=== PATIENT | male | born 1995 | race Caucasian/White ===

== ENCOUNTER → 2017-02-21 | Outpatient (CLI) | payer OTHER ==
[~2017-02-21] MED LIST: ACET-24 PO; AMPH20CA3 PO; AMPH25CA PO; AMPH30CA3 PO; AMPH30TA2 PO; ASPEC325 PO; CLON0.2T PO; RXC5 PO; VENL150T33 PO; VENL225T27 PO; VENL75CA73 PO
== END | disposition home or self-care (01) ==
LOC: C.LAB 01:36
DX: Z02.83 Encounter for blood-alcohol and blood-drug test (principal)

== ENCOUNTER 2017-03-13 00:11 | Inpatient (IN) | payer BC, OTHER ==
[~2017-03-13] VITALS: Ht 177.8 cm; Wt 70.2 kg
[2017-03-13] VITALS (9 sets, daily range): BP systolic 109–149; BP diastolic 53–86; PULSE 75–95; TEMP 36.4–37.1; O2SAT 95–100; Ht 177.8 cm; Wt 70.2 kg
[2017-03-13] MEDS ORDERED: MoRPHine SULFATE 4 MG/ML 1 ML CARP\\VIAL IV STA ×2 (00:33→03:01)
[2017-03-13] MEDS ORDERED: ONDANSETRON INJ 2 MG/ML 2 ML VIAL IV STA (00:33)
[2017-03-13] MEDS ORDERED: SODIUM CHLORIDE 0.9% 1000ML 1,000 ML IV STA ×4 (01:12→04:14)
[2017-03-13] MEDS ORDERED: OPTIRAY 320 IV PRN (01:30)
[2017-03-13 01:42] LABS: HEMATOCRIT 40.5 % (42-52); MEAN CELL VOLUME 83.3 fL (80-100); MEAN CORPUSCULAR HEMOGLOBIN 30.7 pg (25-34); MEAN CORPUSCULAR HGB CONC 36.8 g/dl (32-36); MEAN PLATELET VOLUME 9.3 fL (7.4-10.4); PLATELET COUNT 298 K/uL (130-400); RED BLOOD COUNT 4.86 M/uL (4.7-6.1); WHITE BLOOD COUNT 15.31 K/uL (4.8-10.8)
[2017-03-13] MEDS ORDERED: AMPH25CA PO (01:51)
[2017-03-13] MEDS ORDERED: VENL225T27 PO (01:52)
[2017-03-13] MEDS ORDERED: CLON0.2T PO (01:53)
[2017-03-13] MEDS ORDERED: AMPH20CA3 PO (02:01)
[2017-03-13 02:02] LABS: BUN/CREATININE RATIO 15.2 (10-20); CALCIUM 8.9 mg/dl (8.5-10.1); POTASSIUM 3.5 mmol/L (3.5-5.1)
[2017-03-13] MEDS ORDERED: AMPH30TA2 PO (02:02)
[2017-03-13] MEDS ORDERED: AMPH30CA3 PO (02:04)
[2017-03-13] MEDS ORDERED: VENL150T33 PO (02:06)
[2017-03-13] MEDS ORDERED: VENL75CA73 PO (02:07)
[2017-03-13 02:16] LABS: BASO % 0.2 %; BASO ABS # 0.03 K/uL (0-0.2); COMPLETE YES; EOS % 0.1 %; IG% 0.3 %; LYMPH % 10.6 %; LYMPH ABS # 1.63 K/uL (1.2-3.4); MONO % 6.8 %
[2017-03-13] MEDS ORDERED: HYDROmorphone INJ 1 MG/ML SYR IV STA (03:50)
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
[2017-03-13] MEDS ORDERED: NURSING VERBAL MED ORDER ONE ×2 (06:00→10:00)
[2017-03-13] MEDS ORDERED: ONDANSETRON INJ 2 MG/ML 2 ML VIAL IV PRN ×3 (06:15→14:00)
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
[2017-03-13] MEDS: HYDROmorphone INJ 0.5 MG/0.5 ML SYR IV PRN ×2 (06:58→09:47)
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
[2017-03-13] MEDS: SODIUM CHLORIDE 0.9% 1000ML 1,000 ML IV SCH ×3 (08:25→22:05)
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
[2017-03-13 08:49] LABS: URINE APPEARANCE CLEAR (CLEAR); URINE BILIRUBIN NEG (NEG); URINE COLOR YELLOW; URINE NITRITE NEG (NEG); URINE PH 5.5 (4.5-7.5); URINE SPECIFIC GRAVITY > 1.045 (1.000-1.030); UROBILINOGEN NEG (NEG); ZZURINE CULT IF INDIC CATH NO
[2017-03-13 08:53] LABS: MANUAL MICROSCOPIC REQUIRED? NO; REVIEW REQ? NO
[2017-03-13] MEDS: VENLAFAXINE HCL XR 75 MG CAPXR PO SCH (09:00)
[2017-03-13] MEDS ORDERED: HYDROmorphone INJ 1 MG/ML SYR IV PRN ×2 (10:15→12:00)
[2017-03-13] MEDS ORDERED: MIDAZOLAM HCL 1 MG/ML 2ML VIAL ONE (10:39)
--- NOTE | 2017-03-13 10:41 | History & Physical Bridge Note ---
H&P Re-Evaluation Bridge Note: I have examined the patient, reviewed the History & Physical and in the interval since the performance of the History & Physical I have noted the following changes of clinical significance: No changes noted
[2017-03-13] MEDS ORDERED: FENTANYL CITRATE INJ 50 MCG/1 ML 2 ML VIAL IV PRN (12:00)
[2017-03-13] MEDS ORDERED: FENTANYL CITRATE INJ 50 MCG/1 ML 2 ML VIAL ONE (12:00)
[2017-03-13] MEDS ORDERED: EpHEDrine SULFATE INJ 50 MG/ML AMP IV PRN (12:00)
[2017-03-13] MEDS ORDERED: ATROPINE SULFATE 0.1 MG/ML 5ML SYR IV PRN (12:00)
[2017-03-13] MEDS ORDERED: BUPIVACAINE/EPINEPHRINE 0.5% MPF 1:200,000 30 ML VIAL ONE (12:07)
[2017-03-13] MEDS ORDERED: HYDROmorphone INJ 2 MG/ML SYR/VIAL ONE (12:36)
[2017-03-13] MEDS ORDERED: DEXAMETHASONE SOD INJ 4 MG/ML VIAL ONE (12:41)
[2017-03-13] MEDS ORDERED: ONDANSETRON INJ 2 MG/ML 2 ML VIAL ONE (12:41)
[2017-03-13] MEDS ORDERED: PROPOFOL IV EMULSION 10 MG/ML 20 ML VIAL IV ONE (12:41)
[2017-03-13] MEDS ORDERED: BACITRACIN 50000 UNIT VIAL ONE (13:15)
[2017-03-13] MEDS ORDERED: DiphenhydrAMINE HCL 50 MG/ML VIAL IV PRN (14:00)
[2017-03-13] MEDS ORDERED: ALUMINUM/MAGNESIUM/SIMETH (MAALOX MAX) 30 ML UDC PO PRN (14:00)
--- NOTE | 2017-03-13 14:27 | Anesthesiology Progress Note ---
Anesthesia Post Op Note Date & Time Mar 13, 2017 at 14:26 Vital Signs Pain Intensity: 3.0 Vital Signs Past 12 Hours Date Time Temp Pulse Resp B/P (MAP) Pulse Ox O2 Delivery O2 Flow Rate FiO2 03/13/17 14:15 84 16 132/84 100 Nasal Cannula 3 03/13/17 14:05 85 16 142/79 100 Oxymask 10 03/13/17 13:55 36.9 84 16 129/78 100 Oxymask 10 03/13/17 08:00 Room Air 03/13/17 07:16 37.0 91 18 145/79 (101) 95 Room Air 03/13/17 06:43 37.1 94 16 145/82 96 Room Air 03/13/17 06:25 85 18 142/79 97 03/13/17 06:20 85 18 142/79 97 Room Air 03/13/17 04:28 86 16 96 Room Air 03/13/17 02:46 104 18 138/78 97 Room Air Notes Mental Status: alert / awake / arousable, participated in evaluation Pt Amnestic to Procedure: Yes Nausea / Vomiting: adequately controlled Pain: adequately controlled Airway Patency, RR, SpO2: stable & adequate BP & HR: stable & adequate Hydration State: stable & adequate Anesthetic Complications: no major complications apparent
--- NOTE | 2017-03-13 14:50 | DIAGNOSTIC IMAGING REPORT ---
LEFT TIBIA/FIBULA 2 VIEWS ROUTINE CLINICAL HISTORY: LT IM TIBIAL NAIL COMPARISON STUDY: Left tibia and fibula radiographs March 13, 2017. Fluoroscopy time: 200 seconds. FINDINGS: 7 fluoroscopic images demonstrate placement of an intramedullary michael within the left tibia with proximal and distal screws. Hardware fixates the mid shaft fracture of the left tibia. Fracture alignment has markedly improved and is now near anatomic. Hardware is intact. Alignment of the mid shaft fibular fracture has improved. Multiple osteochondromas are incidentally noted. IMPRESSION: Expected findings following internal fixation of the left tibial fracture. Electronically signed by: Marco Felder M.D. 03/13/2017 2:49 PM Dictated Date/Time: 03/13/2017 2:47 PM
[2017-03-13] MEDS: ACETAMINOPHEN 500 MG TAB PO SCH ×2 (15:30→22:05)
[2017-03-13] MEDS: KETOROLAC TROMETHAMINE 30 MG/ML VIAL IV. SCH ×2 (15:31→22:04)
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
[2017-03-13] MEDS: OXYCODONE HCL IR 5 MG TAB (IMMEDIATE RELEASE) PO PRN ×2 (19:13→20:52)
[2017-03-13] MEDS: CEFAZOLIN IV 1,000 MG in DEXTROSE 5% 50ML 50 ML IV SCH (19:34)
[2017-03-13] MEDS ORDERED: CLONIDINE HCL 0.1 MG TAB PO SCH (21:00)
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
[2017-03-14 03:43] VITALS: BP_SYST 114; BP_SYST 129; BP_DIAS 69; BP_DIAS 78; PULSE 68; TEMP 36.8; O2SAT 97
[2017-03-14] MEDS: KETOROLAC TROMETHAMINE 30 MG/ML VIAL IV. SCH ×2 (03:56→10:53)
[2017-03-14] MEDS: CEFAZOLIN IV 1,000 MG in DEXTROSE 5% 50ML 50 ML IV SCH (03:56)
[2017-03-14] MEDS: ACETAMINOPHEN 500 MG TAB PO SCH ×2 (05:44→14:34)
[2017-03-14] MEDS: SODIUM CHLORIDE 0.9% 1000ML 1,000 ML IV SCH (05:45)
[2017-03-14 07:30] VITALS: BP 103/70; PULSE 83; TEMP 36.5; O2SAT 95
[2017-03-14] MEDS: VENLAFAXINE HCL XR 75 MG CAPXR PO SCH (08:49)
[2017-03-14] MEDS ORDERED: ASPIRIN 325 MG ECTAB PO SCH (09:00)
[2017-03-14] MEDS ORDERED: MULTIVITAMIN TAB PO SCH (09:00)
[2017-03-14] MEDS ORDERED: PANTOprazole SOD 40 MG TAB PO SCH (09:00)
[2017-03-14 12:06] LABS: BASO % 0.1 %; BASO ABS # 0.01 K/uL (0-0.2); COMPLETE YES; HEMATOCRIT 35.1 % (42-52); IG% 0.2 %; LYMPH % 24.7 %; LYMPH ABS # 2.31 K/uL (1.2-3.4); MEAN CELL VOLUME 84.8 fL (80-100); MEAN CORPUSCULAR HEMOGLOBIN 29.5 pg (25-34); MEAN CORPUSCULAR HGB CONC 34.8 g/dl (32-36); MEAN PLATELET VOLUME 9.2 fL (7.4-10.4); MONO % 9.2 %; NEUT % 64.8 %; PLATELET COUNT 242 K/uL (130-400); RED BLOOD COUNT 4.14 M/uL (4.7-6.1); WHITE BLOOD COUNT 9.35 K/uL (4.8-10.8)
[2017-03-14] MEDS ORDERED: RXC5 PO (12:19)
[2017-03-14] MEDS ORDERED: ACET-24 PO (12:19)
[2017-03-14] MEDS ORDERED: ASPEC325 PO (12:19)
--- NOTE | 2017-03-14 12:26 | Discharge Instructions ---
Discharge Instructions Date of Service Mar 14, 2017. Admission Reason for Admission: Tib/Fib Fx Discharge Discharge Diagnosis / Problem: Left Tibia/Fibula Fx Discharge Goals Goal(s): Decrease discomfort, Improve function Activity Recommendations Activity Limitations: per Instructions/Follow-up section Weightbearing Status: Left toe touch . Instructions / Follow-Up Instructions / Follow-Up Toe Touch Weight Bearing on the Left Lower Leg. Keep dressings/splint clean and dry. You may shower if you keep a waterproof barrier covering the splint. Elevate the leg on 1 or 2 pillows when at rest. Increase your activity as able. 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 Crutches for ambulation. Current Hospital Diet Patient's current hospital diet: Regular Diet Discharge Diet Recommended Diet: Regular Diet Procedures Procedures Performed: Open Reduction Internal Fixation Left Tibia Fracture and closed treatment fibula fracture Pending Studies Studies pending at discharge: no Medical Emergencies . Who to Call and When: Medical Emergencies: If at any time you feel your situation is an emergency, please call 911 immediately. . Non-Emergent Contact Non-Emergency issues call your: Surgeon Call Non-Emergent contact if: temperature is above 101.5, your pain is not controlled, your pain is worsening, wound has increased drainage, wound has increased redness . "Provider Documentation" section prepared by Duarte Mulligan. . VTE Core Measure Inpt VTE Proph given/why not?: Other Anticoagulation, T.E.D. Stockings, SCD's [place] Drug Monitoring Program Search Results: patient reviewed within database, no issues identified
--- NOTE | 2017-03-14 12:39 | Orthopedic Progress Note ---
Orthopedic Progress Note Date of Service Mar 14, 2017. Subjective Post OP Day: 1 Reports: feeling well, Denies: complaints Objective calves soft nontender, N/V intact, splint C/D/I, capillary refill less than 2 sec., toes mobile, CMS intact Date Time Temp Pulse Resp B/P (MAP) Pulse Ox O2 Delivery O2 Flow Rate FiO2 03/14/17 07:30 36.5 83 19 103/70 (81) 95 Room Air 03/14/17 07:30 Room Air 03/14/17 03:43 36.8 68 18 114/78 (90) 97 Room Air 03/14/17 00:00 Room Air 03/13/17 22:58 36.8 76 16 111/59 (76) 96 Room Air 03/13/17 20:11 36.7 83 20 124/65 (84) 96 Room Air 03/13/17 17:45 36.7 83 16 109/53 (71) 99 Nasal Cannula 4.0 03/13/17 16:45 36.7 87 20 112/68 (83) 98 Nasal Cannula 4.0 03/13/17 15:45 36.5 79 16 138/76 (96) 100 Nasal Cannula 4.0 03/13/17 15:30 Nasal Cannula 3.0 03/13/17 15:15 36.4 75 18 142/79 (100) 100 Nasal Cannula 4.0 03/13/17 14:55 37.0 95 16 149/86 (107) 100 Nasal Cannula 3.0 03/13/17 14:53 Nasal Cannula 3.0 03/13/17 14:25 36.5 84 16 144/83 100 Nasal Cannula 3 03/13/17 14:15 84 16 132/84 100 Nasal Cannula 3 03/13/17 14:05 85 16 142/79 100 Oxymask 10 03/13/17 13:55 36.9 84 16 129/78 100 Oxymask 10 Laboratory Results 24 Hours: Test 03/14/17 11:47 White Blood Count 9.35 K/uL Red Blood Count 4.14 M/uL Hemoglobin 12.2 g/dL Hematocrit 35.1 % Mean Corpuscular Volume 84.8 fL Mean Corpuscular Hemoglobin 29.5 pg Mean Corpuscular Hemoglobin Concent 34.8 g/dl Platelet Count 242 K/uL Mean Platelet Volume 9.2 fL Neutrophils (%) (Auto) 64.8 % Lymphocytes (%) (Auto) 24.7 % Monocytes (%) (Auto) 9.2 % Eosinophils (%) (Auto) 1.0 % Basophils (%) (Auto) 0.1 % Neutrophils # (Auto) 6.06 K/uL Lymphocytes # (Auto) 2.31 K/uL Monocytes # (Auto) 0.86 K/uL Eosinophils # (Auto) 0.09 K/uL Basophils # (Auto) 0.01 K/uL Assessment & Plan Assessment: POD ORIF tibia with IMN Plan: Doing well pain controlled jax po mobilized ASA for DVT proph D/C today f/u 2 weeks
[2017-03-14 12:40] LABS: BUN/CREATININE RATIO 18.9 (10-20); CALCIUM 7.9 mg/dl (8.5-10.1); CREATININE 0.88 mg/dl (0.60-1.40); POTASSIUM 3.5 mmol/L (3.5-5.1)
[2017-03-14 13:46] VITALS: BP 103/70; PULSE 83; TEMP 36.5; O2SAT 95
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
== END 2017-03-14 15:10 | disposition home or self-care (01) | DRG 494 ==
LOC: EDBD 00:11 → C.EDB 00:12 → C.MSW 05:56 → ENRESERV 06:04
PROVIDERS: ADMIT Orthopaedic Surgery Sports Medicine; ATTEND Orthopaedic Surgery Sports Medicine
PROC: 0QSH06Z Reposition Left Tibia with Intramedullary Internal Fixation Device, Open Approach (ICD-10-PCS; principal; 2017-03-13 12:15)
DX: S82.402A Unspecified fracture of shaft of left fibula, initial encounter for closed fracture (principal); S82.202A Unspecified fracture of shaft of left tibia, initial encounter for closed fracture; F90.9 Attention-deficit hyperactivity disorder, unspecified type; F41.9 Anxiety disorder, unspecified; Z83.3 Family history of diabetes mellitus; Z82.49 Family history of ischemic heart disease and other diseases of the circulatory system; V20.4XXA Motorcycle driver injured in collision with pedestrian or animal in traffic accident, initial encounter

== ENCOUNTER 2019-12-04 23:23 | Inpatient (IN) ==
[2019-12-04] MEDS ORDERED: LORazepam 1 MG TAB PO STA (23:44)
--- NOTE | 2019-12-04 23:50 | Emergency Department Note ---
Impression & Plan Depression with suicidal ideation, Alcohol intoxication ED Provider Note Name: ALAN GARCIA Age: 24 Sex: M Arrives Via: Police [employer] Informant: Patient, Police ED Provider: Michael Sena MD Chief Complaint: Suicidal Ideation Impression: Depression with Suicidal Ideation Alcohol Intoxication Medical Decision Makin yr old male with long history depression/anxiety and ADHD who also clearly has somewhat of an alcohol problem, admitting daily ETOH intake and regularly intoxicated. No history seizures/hallucinations though does have shakes if he g oes a few days without drinking. He arrives intoxicated with police after making suicidal statements to his father and police. 302 filed by Police. He admits suicidal ideation for some time now and self medicating with alcohol for depression which he further states only makes this worse. He is quite anxious and received PO ativan prior to calming down and going to bed. Medically clear. Meds likely cause of positive drug screen. Medically clear other than alcohol intoxication. Monitored overnight while awaiting sobering up. Signed out to Dr Santana pending psychiatric evaluation and management. No evidence of withdrawal while in ed over the night. Prior Medical Record and Triage/Nursing Notes reviewed by Me Differentials:Mood disorder, infection, hypoglycemia, electrolyte abnormalities, cardiac sources, intracerebral event, toxicologic, trauma, neurologic, as well as other pathologies. Vital Signs: reviewed and remarkable for mild tachy Interventions: Ativan 1mg and 2mg PO Labs:Reviewed and remarkable for +etoh Consults:none Plan: Disposition:Signed out to Dr Santana pending mental health evaluation Condition: Good Blood pressure:Elevated - Referred to PCP - [place] to be Situational. Prescriptions:None PDMP: n/a History of Present Illness:24 / M arrives for evaluation of suicidal ideation. Patient admits history of ADHD and anxiety who has followed with psychiatry for many years with depression. He admits daily ETOH use and regularly getting intoxicated with tremors if no etoh for a few days but never seizure nor petit llucinations. He has been feeling increasingly depressed over last few weeks/months. Associated with thoughts of harm to himself with some specific plans. He admits tonight he was seriously thinking about killing himself and thus got drunk to deal with this. He told his father who called 911 and patient brought to ED by Police. He is here on 302 warrant given the specific nature of suicidal ideation he expressed to police. He denies any attempt to harm self. He is on several psychiatric medications daily and denies any over use of medications. He has taken no other medications today. Notes symptoms get worse when thinking about future and better when he gets intoxicated. He has never attempted to harm self before and denies previous hospitalization for psychiatric illness ROS: See above HPI for pertinent positives & negatives. A total of 10 systems re viewed and were otherwise negative. 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 Heavily intoxicated and smells of alcohol EYES: No scleral icterus, unremarkable pupils. ENT: Mucous membranes moist, no nasal congestion. NECK: No masses appreciated, nomeningismus, trachea is midline. RESPIRATORY: No dyspnea. Clear to auscultation and equal bilaterally. No wheeze, no rhonchi. CARDIOVASCULAR: Tachy.No murmurs, rubs, gallops appreciated. GASTROINTESTINAL: Abdomen soft, non-tender, no peritonitis.Bowel sounds positive.No masses appreciated. BACK: No midline tenderness, no CVA tenderness EXTREMITIES: Normal motion all extremities, no cyanosis, no edema. NEUROLOGIC: Alert and oriented, no acute motor or sensory deficits, no focal weakness, cranial nerves grossly intact. SKIN: No rash, no jaundice, no diaphoresis. PSYCH: Sad, Depressed, Anxious, admits suicidal ideation, denies hallucinations/homicidal ideation GCS: 15 ED Course: Times/Reassessments: Multiple throughout night, initially pacing in room though eventually calmed down with ativan and fell asleep Michael Sena MD Past Med/Surg History Social History Preferred Language: Romanian Communication Ability: Effective Beliefs That Will Affect Care: None marital status: Single current occupational status: employed Feels Safe at Home: Yes Smoking Status: Current every day smoker Tobacco Type: e-cigarettes and smokeless tobacco ; Allergies Allergies Allergy/AdvReac Type Severity Reaction Status Date / Time No Known Allergies Allergy Unverified 10/18/19 12:22 Home Meds Home Medications Medication Instructions Recorded Confirmed bupropion HCl 150 mg PO QAM 10/18/19 12/05/19 clonidine HCl 0.2 mg PO HS 10/18/19 12/05/19 dextroamphetamine-amphetamine 60 mg PO QAM 10/18/19 12/05/19 venlafaxine 75 mg PO QAM 10/18/19 12/05/19 venlafaxine 150 mg PO QAM 12/05/19 12/05/19 Results & Data (ED) Vital Signs Vital Signs - 24 hr 12/04/19 23:31 12/05/19 01:28 12/05/19 03:55 Temperature 36.7 C Temperature Source Oral Pulse Rate 117 H Pulse Rate [Right] 107 H 101 H Pulse Rhythm Regular Pulse Rhythm [Right] Pulse Strength Normal Pulse Strength [Right] Respiratory Rate 18 20 16 Respiratory Effort / Characteristics Non-Labored Spontaneous Non-Labored Spontaneous Non-Labored Spontaneous Respiratory Depth Normal Normal Normal Respiratory Pattern Blood Pressure 128/94 Blood Pressure [Right Arm] 142/81 H 137/69 Blood Pressure Mean 105 Blood Pressure Mean [Right Arm] 101 91 Blood Pressure Position Sitting Blood Pressure Position [Right Arm] Sitting Pulse Oximetry 95 99 99 Oxygen Delivery Method Room Air Room Air Room Air Sepsis Recent Fever Within 48 Hours No Sepsis Action Taken by Nursing No Action Required 12/05/19 05:52 12/05/19 10:00 Temperature Temperature Source Pulse Rate Pulse Rate [Right] 95 H 92 H Pulse Rhythm Pulse Rhythm [Right] Regular Pulse Strength Pulse Strength [Right] Normal Respiratory Rate 16 18 Respiratory Effort / Characteristics Non-Labored Spontaneous Non-Labored Spontaneous Respiratory Depth Normal Normal Respiratory Pattern Regular Blood Pressure Blood Pressure [Right Arm] 110/59 L 126/59 L Blood Pressure Mean Blood Pressure Mean [Right Arm] 76 81 Blood Pressure Position Blood Pressure Position [Right Arm] Lying Pulse Oximetry 100 98 Oxygen Delivery Method Room Air Room Air Sepsis Recent Fever Within 48 Hours Sepsis Action Taken by Nursing Laboratory Data Result diagrams: 12/04/19 23:51 12/04/19 23:51 Lab Results 12/04/19 12/04/19 12/04/19 Range/Units 23:51 23:51 23:51 WBC 7.33 (4.8-10.8) K/uL RBC 5.23 (4.7-6.1) M/uL Hgb 15.6 (14.0-18.0) g/dL Hct 44.3 (42-52) % MCV 84.7 (80-100) fL MCH 29.8 (25-34) pg MCHC 35.2 (32-36) g/dL RDW Std Deviation 41.2 (36.4-46.3) fL RDW Coeff of Elvia 13.3 (11.5-14.5) % Plt Count 319 (130-400) K/uL MPV 9.5 (7.4-10.4) fL Immature Gran % (Auto) 0.3 % Neut % (Auto) 59.6 % Lymph % (Auto) 32.1 % Bucks % (Auto) 7.1 % Eos % (Auto) 0.5 % Baso % (Auto) 0.4 % Immature Gran # (Auto) 0.02 (0.00-0.02) K/uL Neut # (Auto) 4.37 (1.4-6.5) K/uL Lymph # (Auto) 2.35 (1.2-3.4) K/uL Bucks # (Auto) 0.52 (0.11-0.59) K/uL Eos # (Auto) 0.04 (0-0.5) K/uL Baso # (Auto) 0.03 (0-0.2) K/uL Sodium 143 (136-145) mmol/L Potassium 3.5 (3.5-5.1) mmol/L Chloride 109 H (98-107) mmol/L Carbon Dioxide 23 (21-32) mmol/L Anion Gap 11.0 (3-11) BUN 9 (7-18) mg/dl Creatinine 0.97 (0.6-1.4) mg/dl Est Cr Clr Drug Dosing Not Reportable Est GFR ( Amer) 127.9 Est GFR (Non-Af Amer) 110.4 BUN/Creatinine Ratio 9.4 L (10-20) Glucose 102 H (70-99) mg/dl Calcium 8.6 (8.5-10.1) mg/dl Total Bilirubin 0.2 (0.2-1) mg/dl AST 22 (15-37) U/L ALT 29 (12-78) U/L Alkaline Phosphatase 85 (45-117) U/L Total Protein 7.5 (6.4-8.2) gm/dl Albumin 4.1 (3.4-5.0) gm/dl Globulin 3.4 (2.5-4.0) gm/dl Albumin/Globulin Ratio 1.2 (0.9-2) TSH 1.980 (0.300-4.500) uIu/ml Urine Color Urine Appearance (Clear) Urine pH (4.5-7.5) Ur Specific [place] (1.000-1.030) Urine Protein (Negative) Urine Glucose (UA) (Negative) Urine Ketones (Negative) Urine Blood (Negative) Urine Nitrite (Negative) Urine Bilirubin (Negative) Urine Urobilinogen (Negative) Ur Leukocyte Esterase (Negative) Urine WBC (Auto) (0-5) /hpf Urine RBC (Auto) (0-4) /hpf U Hyaline Cast (Auto) (0-5) /lpf U Epithel Cells (Auto) (0-5) /lpf Urine Bacteria (Auto) (Negative) Salicylates < 1.7 L (2.8-20) mg/dl Urine Opiates Screen (Neg) Ur Methadone, Qual (Neg) Acetaminophen < 2 L (10-30) ug/ml Urine Barbiturates (Neg) Ur Phencyclidine (PCP) (Neg) U Amphetamin/Meth Scrn (Neg) MDMA (Ecstasy) Screen (Neg) U Benzodiazepines Scrn (Neg) Ur Cocaine Metabolite (Neg) U Marijuana (THC) Screen (Neg) Ethyl Alcohol mg/dL (0-3) mg/dl 12/04/19 12/05/19 12/05/19 Range/Units 23:51 00:50 00:50 WBC (4.8-10.8) K/uL RBC (4.7-6.1) M/uL Hgb (14.0-18.0) g/dL Hct (42-52) % MCV (80-100) fL MCH (25-34) pg MCHC (32-36) g/dL RDW Std Deviation (36.4-46.3) fL RDW Coeff of Elvia (11.5-14.5) % Plt Count (130-400) K/uL MPV (7.4-10.4) fL Immature Gran % (Auto) % Neut % (Auto) % Lymph % (Auto) % Bucks % (Auto) % Eos % (Auto) % Baso % (Auto) % Immature Gran # (Auto) (0.00-0.02) K/uL Neut # (Auto) (1.4-6.5) K/uL Lymph # (Auto) (1.2-3.4) K/uL Bucks # (Auto) (0.11-0.59) K/uL Eos # (Auto) (0-0.5) K/uL Baso # (Auto) (0-0.2) K/uL Sodium (136-145) mmol/L Potassium (3.5-5.1) mmol/L Chloride (98-107) mmol/L Carbon Dioxide (21-32) mmol/L Anion Gap (3-11) BUN (7-18) mg/dl Creatinine (0.6-1.4) mg/dl Est Cr Clr Drug Dosing Est GFR ( Amer) Est GFR (Non-Af Amer) BUN/Creatinine Ratio (10-20) Glucose (70-99) mg/dl Calcium (8.5-10.1) mg/dl Total Bilirubin (0.2-1) mg/dl AST (15-37) U/L ALT (12-78) U/L Alkaline Phosphatase (45-117) U/L Total Protein (6.4-8.2) gm/dl Albumin (3.4-5.0) gm/dl Globulin (2.5-4.0) gm/dl Albumin/Globulin Ratio (0.9-2) TSH (0.300-4.500) uIu/ml Urine Color Yellow Urine Appearance Clear (Clear) Urine pH 5.0 (4.5-7.5) Ur Specific [place] 1.020 (1.000-1.030) Urine Protein 1+ H (Negative) Urine Glucose (UA) Negative (Negative) Urine Ketones Trace H (Negative) Urine Blood Negative (Negative) Urine Nitrite Negative (Negative) Urine Bilirubin Negative (Negative) Urine Urobilinogen Negative (Negative) Ur Leukocyte Esterase Negative (Negative) Urine WBC (Auto) 1-5 (0-5) /hpf Urine RBC (Auto) 0-4 (0-4) /hpf U Hyaline Cast (Auto) 1-5 (0-5) /lpf U Epithel Cells (Auto) 5-10 H (0-5) /lpf Urine Bacteria (Auto) Negative (Negative) Salicylates (2.8-20) mg/dl Urine Opiates Screen Neg (Neg) Ur Methadone, Qual Neg (Neg) Acetaminophen (10-30) ug/ml Urine Barbiturates Neg (Neg) Ur Phencyclidine (PCP) Neg (Neg) U Amphetamin/Meth Scrn Pos H (Neg) MDMA (Ecstasy) Screen Pos H (Neg) U Benzodiazepines Scrn Neg (Neg) Ur Cocaine Metabolite Neg (Neg) U Marijuana (THC) Screen Pos H (Neg) Ethyl Alcohol mg/dL 238.2 H (0-3) mg/dl Administered Medications Clonidine HCl (Catapres) 0.[address] [facility] Stop: 01/04/20 21:59 Last Admin: 12/05/19 21:39 Dose: 0.2 mg Documented by: [id number] Nicotine Polacrilex (Nicorette 2mg) 1 piece MT PRN PRN PRN Reason: nicotine cravings Stop: 01/04/20 17:07 Last Admin: 12/05/19 17:27 Dose: 1 piece Documented by: [id number] Discontinued Medications Amphetamine/Dextroamphetamine (Ad[facility]all Xr) [facility] Stop: 12/19/19 08:59 Last Admin: 12/05/19 08:53 Dose: 60 mg Documented by: [id number] Bupropion HCl (Wellbutrin-Xl) 150 mg PO [facility] Stop: 01/04/20 08:59 Last Admin: 12/05/19 08:54 Dose: 150 mg Documented by: [id number] Lorazepam (Ativan) 1 mg PO NOW STA Stop: 12/04/19 23:45 Last Admin: 12/04/19 23:54 Dose: 1 mg Documented by: [id number] Lorazepam (Ativan) 2 mg PO NOW STA Stop: 12/05/19 01:15 Last Admin: 12/05/19 01:17 Dose: 2 mg Documented by: [id number] Nicotine Polacrilex (Nicorette 2mg) 1 piece MT ONE ONE Stop: 12/05/19 10:59 Last Admin: 12/05/19 11:14 Dose: 1 piece Documented by: [id number] Venlafaxine HCl (Effexor Extended Release) 75 mg PO QAM [facility] Stop: 01/04/20 08:59 Last Admin: 12/05/19 08:53 Dose: 75 mg Documented by: [id number] Discharge Plan Visit Data *Final* Discharge Date/Time: 12/05/19 13:50 Chief Complaint: Mental Health Evaluation Stated Complaint: MENTAL HEALTH ED Provider: Ruiz Santana Discharge Problem: Depression with suicidal ideation, Alcohol intoxication Patient Disposition: Admitted As Inpatient Discharge Instructions Interventions: ED Discharge Assessment Last Done: 12/05/19 13:50 Discharge Problem: Alcohol intoxication Qualifiers: Complication of substance-induced condition: uncomplicated Qualified Code(s): F10.920 - Alcohol use, unspecified with intoxication, uncomplicated
[2019-12-05 00:05] LABS: Basophils # (auto) 0.03 K/uL (0-0.2); Basophils % (auto) 0.4 %; Eosinophils # (auto) 0.04 K/uL (0-0.5); Eosinophils % (auto) 0.5 %; Hematocrit (blood only) 44.3 % (42-52); Hemoglobin 15.6 g/dL (14.0-18.0); Immature Granulocytes # (auto) 0.02 K/uL (0.00-0.02); Immature Granulocytes % (auto) 0.3 %; Lymphocytes # (auto) 2.35 K/uL (1.2-3.4); Lymphocytes % (auto) 32.1 %; Mean Corpuscular Hemoglobin 29.8 pg (25-34); Mean Corpuscular Hgb Conc 35.2 g/dL (32-36); Mean Corpuscular Volume 84.7 fL (80-100); Mean Platelet Volume 9.5 fL (7.4-10.4); Monocytes # (auto) 0.52 K/uL (0.11-0.59); Monocytes % (auto) 7.1 %; Neutrophils # (auto) 4.37 K/uL (1.4-6.5); Neutrophils % (auto) 59.6 %; Platelet Count 319 K/uL (130-400); RDW Coefficient of Variation 13.3 % (11.5-14.5); RDW Standard Deviation 41.2 fL (36.4-46.3); Red Blood Count 5.23 M/uL (4.7-6.1); White Blood Count 7.33 K/uL (4.8-10.8)
[2019-12-05 00:27] LABS: Alanine Aminotransferase 29 U/L (12-78); Albumin Level 4.1 gm/dl (3.4-5.0); Aspartate Aminotransferase 22 U/L (15-37); BUN Creatinine Ratio 9.4 (10-20); Blood Urea Nitrogen 9 mg/dl (7-18); Calcium 8.6 mg/dl (8.5-10.1); Carbon Dioxide 23 mmol/L (21-32); Chloride 109 mmol/L (98-107); Est GFR (African American) 127.9; Est GFR (Non-African American) 110.4; Glucose 102 mg/dl (70-99); Potassium 3.5 mmol/L (3.5-5.1); Sodium 143 mmol/L (136-145)
[2019-12-05 00:34] LABS: Acetaminophen < 2 ug/ml (10-30); Salicylate < 1.7 mg/dl (2.8-20)
[2019-12-05 00:37] LABS: Albumin Globulin Ratio 1.2 (0.9-2); Alkaline Phosphatase 85 U/L (45-117); Bilirubin,Total 0.2 mg/dl (0.2-1); Globulin 3.4 gm/dl (2.5-4.0); Total Protein 7.5 gm/dl (6.4-8.2)
[2019-12-05] MEDS ORDERED: LORazepam 1 MG TAB PO STA (01:14)
[2019-12-05 01:18] LABS: Appearance Urine Clear (Clear); Bacteria Urine Automated Negative (Negative); Bilirubin Urine Negative (Negative); Blood Urine Negative (Negative); Color Urine Yellow; Glucose Urine UA Negative (Negative); Ketones Urine Trace (Negative); Leukocyte Esterase Urine Negative (Negative); Nitrite Urine Negative (Negative); Protein Urine 1+ (Negative); RBC Urine Automated 0-4 /hpf (0-4); Urobilinogen Urine Negative (Negative)
[2019-12-05 01:41] LABS: Amphetamines+Metham, Urine Pos (Neg); Barbiturates, Urine Neg (Neg); Benzodiazepine, Urine Neg (Neg); Cocaine, Urine Neg (Neg); MDMA (Ecstacy), Urine Pos (Neg); Methadone, Urine Neg (Neg); Opiate, Urine Neg (Neg); Phencyclidine, Urine Neg (Neg)
[2019-12-05] MEDS ORDERED: VENLAFAXINE HCL XR 75 MG CAPXR PO SCH (09:00)
[2019-12-05] MEDS ORDERED: AMPHETAMINE ASP/SULF/DEXTRAMPH ER 20 MG CAP PO SCH (09:00)
[2019-12-05] MEDS ORDERED: BuPROPion XL 150 MG TABCR PO SCH (09:00)
[2019-12-05] MEDS ORDERED: NICOTINE POLACRILEX 2 MG GUM MT ONE (10:58)
[2019-12-05] MEDS ORDERED: BISMUTH SUBSALICYLATE PER ML OMNICELL CHARGE PO PRN (13:00)
[2019-12-05] MEDS ORDERED: LORazepam 1 MG TAB PO PRN (13:00)
[2019-12-05] MEDS ORDERED: ACETAMINOPHEN 325 MG TAB PO PRN (13:00)
[2019-12-05] MEDS ORDERED: ALUMINUM/MAGNESIUM SUSP 30 ML UDC PO PRN (13:00)
[2019-12-05] MEDS ORDERED: SODIUM CHLORIDE 0.65% NA SOLN 45 ML (OCEAN) PRN (13:00)
[2019-12-05] MEDS ORDERED: MAGNESIUM HYDROXIDE SUSP 30 ML UDC PO PRN (13:00)
--- NOTE | 2019-12-05 13:43 | Emergency Department Note ---
ED Visit Note This patient was signed out to me at [address] Sena pending mental health evaluation. The patient was seen by the mental health returned case inspector. He was agreeable to inpatient psychiatric care. He did sign the 201 and was accepted to 3 S. I did sign off on the 302 warrant. I did give him his morning meds as well as nicotine gum. . : Alcohol intoxication Qualifiers: Complication of substance-induced condition: uncomplicated Qualified Code(s): F10.920 - Alcohol use, unspecified with intoxication, uncomplicated
[2019-12-05] MEDS: NICOTINE POLACRILEX 2 MG GUM MT PRN (17:27)
[2019-12-05] MEDS ORDERED: CLONIDINE HCL 0.2 MG PO SCH (21:00)
[2019-12-05] MEDS: cloNIDine HCL 0.1 MG TAB PO SCH (21:39)
[2019-12-05] MEDS ORDERED: cloNIDine HCL 0.1 MG TAB PO SCH (22:00)
[2019-12-06] MEDS: BuPROPion XL 150 MG TABCR PO SCH (09:05)
[2019-12-06] MEDS: VENLAFAXINE HCL XR 75 MG CAPXR PO SCH (09:05)
--- NOTE | 2019-12-06 09:13 | History & Physical ---
Date of Service December 06, 2019 Impression / Recommendations Impression 24-year-old single male who lives with his parents and sister, has a history of depression, anxiety, and ADHD, and presents with suicidality and threats to cut his throat in the context of alcohol abuse, drinking a 12 pack or a fifth of liquor daily for the past several years. Stressors include multiple mentally ill family members, pandemic, decreased socialization. He has not been forthcoming with his outpatient providers about his alcohol abuse, but states willingness to work towards sobriety. Inpatient treatment is medically necessary due to the severity of symptoms and risk for suicide if discharged. (1) Depression with suicidal ideation: 6/ -continue home medication regimen as he reports it is effective and identifies drinking as his primary concern. Mood worsens noticeably after drinking, and discussed the effects of alcohol on mood. He also indicates poor adherence with therapy, and that he is often not forthcoming in treatment. Discussed importance of learning how to identify and verbalize his emotions, and he is willing to work on this. -Family meeting with parents, to focus on safety concerns. Ensure no access to guns, and discussed ways to support sobriety, such as removing alcohol from the home. -Coordinate care with outpatient psychiatrist and therapist at some point. -Continue voluntary hospitalization, encourage group attendance and participation, work on healthy coping skills and discharge safety plan. (2) Alcohol abuse: 12/05 -history of withdrawal with shakes when he tries to stop drinking. Started on AWSS protocol on admission. Recovery protocol. -Recommend substance abuse treatment, explore during family meeting. -brief intervention was offered and accepted. Intervention was greater than 5 min in length. Brief interventions include: 1. Assess Readiness to Quit, 2. Advise: Help Patient to Reduce or Abstain from Alcohol, 3. Agree: Set Specific, Feasible Goals, 4. Assist: Anticipate barriers, Problem-Solving Solutions. Social work to 5. Arrange: Referrals to appropriate treatment. Summary of intervention: The patient is in contemplation stage with regards to transtheoretical model of change. The patient is advised to decrease alcohol consumption due to depressant effects and risk of interactions with prescription medications. The patient agreed to consider treatment, and will be provided with recovery materials to continue to education self on how to cope with their condition without drinking. (3) ADHD: Continue home dose of Adderall XR. 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 Chief Complaint " It was just like my normal day, would like to drink in the evenings..." History of Present Illness Patient presented to the ER 12/04/2019 with alcohol intoxication and suicidality. He was brought in by police on a 302 warrant stating: "On 12/04/2019 at approximately 2300 hours I responded to an address in [facility]. At the address I made contact with Artemio Sotelo. Deepak was visibly under the influence of alcohol and stated that he was thinking of hurting himself. Deepak also stated he had a plan to hurt himself but didn't elaborate." Stated he had been drinking liquor daily, which worsens his mood, has shakes when he does not drink for a day, and BAL was 238. Reported he had been noncompliant with therapy and had not gone to appointments in months, and was not honest with his providers about how he was feeling. He endorsed worsening mood in the context of multiple stressors. He was allowed to sleep overnight in the ER, following morning was assessed and agreed to inpatient treatment. He was continued on his home medications, bupropion XL, clonidine, venlafaxine XR, and Adderall ER. On my assessment, he states mood has been suboptimal "for a long time," and he has not been about this with anyone. He states he drinks most nights, which causes him to be "quick to anger," and denied of presentation he "went off, was yelling something, and my sister called the police." He cannot recall what angered him, but admits to making suicidal statements to slit his throat, and frequent suicidal thoughts, feeling "I'm just not cut out for living." These are exacerbated by problems at work, feeling that his bosses use him as a scapegoat and blame him for things that are not his fault. He endorses chronic anxiety, feeling that he needs constant reassurance from others that they care about him, and worries that people will leave him. He denies panic attacks and social anxiety, but reports impaired sleep, and often drinks alcohol to help with anxiety and sleep. He describes his mood as "all right during the day, I go through the motions, but mood is not terrible." Energy and motivation are decreased, and notes he no longer works out (wrestled in high school, last 3 years ago). He denies anhedonia, is able to enjoy riding motorcycles and spending time with his friends. He states sleep has been poor "as long as I can remember," and that he has been drinking most days since he was 20 or 21 years old, typically a 12 pack of beer or a fifth of liquor. His drinking has caused problems with his friends, ended relationships, and he has been arrested for DUI. He rarely goes a day without drinking, "only if I have to." No history of manic or psychotic symptoms. Stressors include increased social isolation, lack of access to normal activities due to the pandemic, and more downtime at home. He reports good compliance with medications, and thinks that his current regimen is helpful, but that he needs to stop drinking. He only briefly attended treatment in the past ([facility]), but this was compulsory when he received his DUI, and he was not engaged/motivated. Past Psychiatric History Previous Psych History: History of outpatient treatment at [facility], family-based treatment [phone], and therapy at the [facility] psychological clinic [phone]. Current Psychiatric Diagnosis: Depression, anxiety, ADHD Outpatient Services: Psychiatrist Dr. Dinh and therapist Kan Philippe at [facility], but has not seen his therapist in 3 to 4 months Previous Psych Admissions: Denies Do You Have Access To A Gun?: No History of Previous Suicide Attempt: Yes Describe Attempts in the Past: ideations, no attempts in last 6 months, tried to shoot self in 2017 Past Medication Trials: Citalopram -initially effective, but then increased irritability Ritalin Concerta Vyvanse -irritability Hydroxyzine Intuniv -sedation Risperidone -little benefit, weight gain Escitalopram -multiple trials Aripiprazole -weight gain, little benefit Bupropion SR -question of activation Lamotrigine -no improvement Quetiapine -rare as needed use Strattera -2013 Allergies Allergy/AdvReac Type Severity Reaction Status Date / Time No Known Allergies Allergy Unverified 10/18/19 12:22 Home Medications Home Medications Medication Instructions Recorded Confirmed Type bupropion HCl 150 mg PO QAM 10/18/19 12/05/19 History clonidine HCl 0.2 mg PO HS 10/18/19 12/05/19 History dextroamphetamine-amphetamine 60 mg PO QAM 10/18/19 12/05/19 History venlafaxine 75 mg PO QAM 10/18/19 12/05/19 History venlafaxine 150 mg PO QAM 12/05/19 12/05/19 History Family History Family Mental Health History Comment: Mother with borderline personality disorder, and suicide attempt; sister with recent psychiatric hospitalization, b ut he does not know her diagnosis Alcohol History Hx of Alcohol Use Over the Past 12 Months: Yes (drinking liquor or beer daily) AUDIT Total Score: 17 Drinking alcohol daily since age 20 or 21, a 12 pack of beer or fifth of liquor daily. Has shakes when he tries to stop drinking. Denies history of withdrawal seizures/DTs. No history of substance abuse treatment, other than court ordered AA when he got a DUI at age 21. Smoking Use Have You Smoked or Used Tobacco Products in the Last 30 Days: Yes tobacco type: e-cigarettes and smokeless tobacco Smoking Status: Current every day smoker Substance History Hx of Prescription Med Misuse Over the Past 12 Months: No Hx of Over the Counter Med Misuse Over the Past 12 Months: No Hx of Inhalent Misuse Over the Past 12 Months: No Hx of Organic Substance Use Over the Past 12 Months: Yes (Marijuana) Hx of Illegal Substances/Street Drug Use Over Past 12 Months: No Problems as a Result of Past Substance Use: Relationships Ended and Arrested Personal History Living Arrangements: Home Living Arrangements Comments: With parents and younger sister in [place] Highest Grade Completed: High School Graduate and Vocational Training 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 Marital Status: Single Number Of Children: 0 Beliefs That Will Affect Care: None Current Legal Problems: No Hx Legal Problems: Yes (DUI) Patient History Medical History ADHD Alcohol abuse Surgical History No significant past surgical history Social History Preferred Language: Greek Communication Ability: Effective Beliefs That Will Affect Care: None marital status: Single current occupational status: employed Feels Safe at Home: Yes Smoking Status: Current every day smoker Tobacco Type: e-cigarettes and smokeless tobacco ; Review of Systems Review of Systems: All systems reviewed & are unremarkable except as noted in HPI & below Physical Exam Vital Signs (Past 24 Hours): Last Vital Signs Temp 36.5 C 12/06/19 06:00 Pulse 57 L 12/06/19 06:28 Resp 17 12/06/19 06:00 BP 123/72 12/06/19 06:28 Pulse Ox 99 12/05/19 13:50 Exam Statement: A physical exam was performed in the ER prior to admission to the unit by Dr. Michael Sena. I accept that physical as correct/medical clearance for the inpatient physical exam. Results & Data ([facility]) Current Inpatient Medications Current Inpatient Medications: Current Inpatient Medications Acetaminophen (Tylenol) 650 mg PO Q4H PRN PRN Reason: Headache or Minor Fever Stop: 01/04/20 12:59 Al Hydrox/Mg Hydrox/Simethicone (Maalox) 30 ml PO Q4H PRN PRN Reason: GI Upset Stop: 01/04/20 12:59 Bismuth Subsalicylate (Kaopectate) 15 ml PO .for loose stool PRN PRN Reason: Loose Stool Stop: 01/04/20 12:59 Bupropion HCl (Wellbutrin-Xl) 150 mg PO QAM CORTNEY Stop: 01/05/20 08:59 Clonidine HCl (Catapres) 0.2 mg PO HS CORTNEY Stop: 01/04/20 21:59 Last Admin: 12/05/19 21:39 Dose: 0.2 mg Documented by: Hydroxyzine HCl (Vistaril) 50 mg PO HSZ PRN PRN Reason: Insomnia Stop: 01/04/20 12:59 Hydroxyzine HCl (Vistaril) 25 mg PO Q4H PRN PRN Reason: Anxiety Stop: 01/04/20 12:59 Lorazepam (Ativan) 1 - 3 mg PO UD PRN; Protocol PRN Reason: EtoH Withdrawal AWSS 6-10+ Stop: 01/04/20 12:59 Magnesium Hydroxide (Milk Of Magnesia) 30 ml PO DAILY PRN PRN Reason: Constipation Stop: 01/04/20 12:59 Nicotine Polacrilex (Nicorette 2mg) 1 piece MT PRN PRN PRN Reason: nicotine cravings Stop: 01/04/20 17:07 Last Admin: 12/05/19 17:27 Dose: 1 piece Documented by: Sodium Chloride ([place] Nasal) 1 - 2 sprays NA PRN PRN PRN Reason: Nasal Dryness/Congestion Stop: 01/04/20 12:59 Venlafaxine HCl (Effexor Extended Release) 225 mg PO QAM CORTNEY Stop: 01/05/20 08:59
[2019-12-06] MEDS: NICOTINE POLACRILEX 2 MG GUM MT PRN ×3 (09:36→17:47)
[2019-12-06] MEDS: cloNIDine HCL 0.1 MG TAB PO SCH (21:36)
[2019-12-07] MEDS ORDERED: AMPHETAMINE PO SCH (09:00)
[2019-12-07] MEDS ORDERED: DEXTROAMPHETAMINE PO SCH (09:00)
[2019-12-07] MEDS: VENLAFAXINE HCL XR 75 MG CAPXR PO SCH (10:25)
[2019-12-07] MEDS: BuPROPion XL 150 MG TABCR PO SCH (10:26)
[2019-12-07] MEDS: AMPHETAMINE ASP/SULF/DEXTRAMPH ER 20 MG CAP PO SCH (10:26)
[2019-12-07] MEDS: DEXTROAMPHETAMINE/AMPHETAMINE ER 10 MG CAP PO SCH (10:26)
--- NOTE | 2019-12-07 11:20 | Psychiatric Progress Note ---
Date of Service December 07, 2019 Impression / Recommendations Impression 24-year-old single male who lives with his parents and sister, has a history of depression, anxiety, and ADHD, and presents with suicidality and threats to cut his throat in the context of alcohol abuse, drinking a 12 pack or a fifth of liquor daily for the past several years. Stressors include multiple mentally ill family members, pandemic, decreased socialization. He has not been forthcoming with his outpatient providers about his alcohol abuse, but states willingness to work towards sobriety. In addition to psychiatric treatment at [facility], patient was also willing for referral to [facility] to address his alcohol use in therapy. Family meeting held with parents who are supportive and confirm guns have been removed from the home. Inpatient treatment is medically necessary due to the severity of symptoms and risk for suicide if discharged without appropriate aftercare appointments in place. (1) Depression with suicidal ideation: 12/05 -continue home medication regimen as he reports it is effective and identifies drinking as his primary concern. Mood worsens noticeably after drinking, and discussed the effects of alcohol on mood. He also indicates poor adherence with therapy, and that he is often not forthcoming in treatment. Discussed importance of learning how to identify and verbalize his emotions, and he is willing to work on this. -Family meeting with parents, to focus on safety concerns. Ensure no access to guns, and discussed ways to support sobriety, such as removing alcohol from the home. -Coordinate care with outpatient psychiatrist and therapist at some point. -Continue voluntary hospitalization, encourage group attendance and participation, work on healthy coping skills and discharge safety plan. 12/06 - Continue home medication regimen - Family meeting with parents this morning, patient reported feeling pleased with his ability to open up about his struggles anxiety and alcohol abuse - Continue voluntary hospitalization until appropriate aftercare referrals can be placed - will continue with [facility] for medication management and individual therapy, also willing for [facility] for D&A counseling (2) Alcohol abuse: 12/05 -history of withdrawal with shakes when he tries to stop drinking. Started on AWSS protocol on admission. Recovery protocol. -Recommend substance abuse treatment, explore during family meeting. -brief intervention was offered and accepted. Intervention was greater than 5 min in length. Brief interventions include: 1. Assess Readiness to Quit, 2. Advise: Help Patient to Reduce or Abstain from Alcohol, 3. Agree: Set Specific, Feasible Goals, 4. Assist: Anticipate barriers, Problem-Solving Solutions. Social work to 5. Arrange: Referrals to appropriate treatment. Summary of intervention: The patient is in contemplation stage with regards to transtheoretical model of change. The patient is advised to decrease alcohol consumption due to depressant effects and risk of interactions with prescription medications. The patient agreed to consider treatment, and will be provided with recovery materials to continue to education self on how to cope with their condition without drinking. 12/06 - Pt participated in family meeting with parents today - patient's increasing alcohol use was discussed - Pt reporting desire for D&A counseling and was agreeable with referral to [facility] - Pt verbalizes willingness to continue individual therapy and psychiatric medication management (3) ADHD: Continue home dose of Adderall XR. 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 Chief Complaint "Pretty good. I think I'm getting a lot done here." Review of Systems Notes Constitutional: denied Cardiovascular: denied Respiratory: denied Gastrointestinal: denied Neurological: denied Psychiatric: denies symptoms other than stated above Total of at least 10 systems reviewed, pertinent positives as above and in HPI. Sleep Information Total Hours of Sleep: 7 Meal Information Percent Meal Consumed - Breakfast: 100 Percent Meal Consumed - Lunch: 100 Percent Meal Consumed - Dinner: 100 Subjective Subjective Patient was seen & assessed and interval progress reviewed with treatment team. Staff report the patient has been pleasant and cooperative. He has been attending all group programming and working through his recovery book. He rated his mood a 6/10 and "better" last evening. Pt is scheduled for a family meeting with his parents this morning. Pt was seen today to assess progress since admission, encounter occurring after his meeting was completed. Pt reports that he feels "pretty good" today, and feels as though he is "getting a lot done here." Pt feels the meeting went "pretty good. I was able to get a lot off my chest and open up more than I ever had." Pt specifically states he was able to share with his parents "why I did what I did, what was going on." Pt claims that work stress has played a considerable role in his mood, stating that he often begins drinking to cope with the stress from work. Pt does admit that although he has consumed alcohol for several years now, but it has escalated in the last year. Pt states alcohol use was "a big focus of the meeting." Pt does admit "I don't just want to cut back on alcohol, I need to." Pt reports he has a significant family history of alcohol abuse, and his parents expressed concern that his behavior would escalate to patient harming himself or others. Pt states he had not previously been in a place to confront these behaviors, but is now seeing the need to do so. During the meeting, the patient agreed with referral for outpatient D&A counseling in addition to his outpatient medication management and individual therapy. Pt denies SI, but is able to recognize the benefit of ongoing psychiatric hospitalization until this complete discharge plan can be arranged. Pt denies feeling as though medication adjustments are necessary, even mentioning he would be nervous about changes at this time. He denies other needs or concerns presently. Physical Exam Psychiatric Orientation: alert, oriented x 3 and cooperative (and pleasant) Apperance: appropriately dressed Eye Contact: good eye contact Motor Behavior: steady gait and station and no abnormal motor movements Speech: normal rate/rhythm/volume of speech Affect: euthymic affect and + anxious affect Mood: + anxious mood ("I feel better, but have been opening up a lot more than usual"); no depressed mood Thought Process: goal directed thought process, clear/coherent thought process and thought association intact Thought Content: reality based without delusions; no hopelessness and no worthlessness Suicidal Thoughts: denies suicidal thoughts and denies suicidal intent Homicidal Thoughts: denies homicidal thoughts Hallucinations: no auditory hallucinations and no visual hallucinations Cognition: recent memory grossly intact, attention grossly intact and language grossly intact Estimated Intelligence: consistent with education level Insight: + fair insight Judgement: + fair judgement Vital Signs (Past 24 Hours) Last Vital Signs Temp 36.5 C 12/07/19 07:02 Pulse 58 L 12/07/19 07:03 Resp 16 12/07/19 07:02 BP 99/64 L 12/07/19 07:03 Pulse Ox 99 12/05/19 13:50 Results & Data ([facility]) Current Inpatient Medications Current Inpatient Medications: Current Inpatient Medications Acetaminophen (Tylenol) 650 mg PO Q4H PRN PRN Reason: Headache or Minor Fever Stop: 01/04/20 12:59 Al Hydrox/Mg Hydrox/Simethicone (Maalox) 30 ml PO Q4H PRN PRN Reason: GI Upset Stop: 01/04/20 12:59 Amphetamine/Dextroamphetamine (Adderall Xr) 40 mg PO DAILY CORTNEY Stop: 12/21/19 08:59 Last Admin: 12/07/19 10:26 Dose: 40 mg Documented by: Amphetamine/Dextroamphetamine (Adderall Er) 10 mg PO DAILY CORTNEY Stop: 12/21/19 08:59 Last Admin: 12/07/19 10:26 Dose: 10 mg Documented by: Bismuth Subsalicylate (Kaopectate) 15 ml PO .for loose stool PRN PRN Reason: Loose Stool Stop: 01/04/20 12:59 Bupropion HCl (Wellbutrin-Xl) 150 mg PO QAM CORTNEY Stop: 01/05/20 08:59 Last Admin: 12/07/19 10:26 Dose: 150 mg Documented by: Clonidine HCl (Catapres) 0.2 mg PO HS CORTNEY Stop: 01/04/20 21:59 Last Admin: 12/06/19 21:36 Dose: 0.2 mg Documented by: Hydroxyzine HCl (Vistaril) 50 mg PO HSZ PRN PRN Reason: Insomnia Stop: 01/04/20 12:59 Hydroxyzine HCl (Vistaril) 25 mg PO Q4H PRN PRN Reason: Anxiety Stop: 01/04/20 12:59 Magnesium Hydroxide (Milk Of Magnesia) 30 ml PO DAILY PRN PRN Reason: Constipation Stop: 01/04/20 12:59 Nicotine Polacrilex (Nicorette 2mg) 1 piece MT PRN PRN PRN Reason: nicotine cravings Stop: 01/04/20 17:07 Last Admin: 12/06/19 17:47 Dose: 1 piece Documented by: Sodium Chloride ([place] Nasal) 1 - 2 sprays NA PRN PRN PRN Reason: Nasal Dryness/Congestion Stop: 01/04/20 12:59 Venlafaxine HCl (Effexor Extended Release) 225 mg PO QAM CORTNEY Stop: 01/05/20 08:59 Last Admin: 12/07/19 10:25 Dose: 225 mg Documented by: Mental Health & Subst Abuse Tx Psychiatrist Name of Psychiatrist: [facility] - Dr. Dinh Psychiatrist's Psychiatric Appointment Comment: [address] [place], [place] Therapist [facility]ist: [facility] B[facility]bara Philippe Therapy Appointment Comment: [address] [facility] [address] [place], [place] Intellectual Property Paralegal Name of Intellectual Property Paralegal: None Post Discharge Appointments Primary Care Physician Name Of Family Doctor: None Contact Information Discharge Discharge Address: [facility] [place] [address]
[2019-12-07] MEDS: NICOTINE POLACRILEX 2 MG GUM MT PRN ×2 (14:34→19:58)
[2019-12-07] MEDS: NICOTINE 21 MG/24 HR TDSY TD SCH (15:34)
[2019-12-07] MEDS: cloNIDine HCL 0.1 MG TAB PO SCH (22:08)
[2019-12-08] MEDS: NICOTINE 21 MG/24 HR TDSY TD SCH (08:20)
[2019-12-08] MEDS: BuPROPion XL 150 MG TABCR PO SCH (08:20)
[2019-12-08] MEDS: VENLAFAXINE HCL XR 75 MG CAPXR PO SCH (08:20)
[2019-12-08] MEDS: DEXTROAMPHETAMINE/AMPHETAMINE ER 10 MG CAP PO SCH (08:21)
[2019-12-08 09:09] LABS: Amphetamine Urine, Confirm >15000 ng/mL (<250); MDA negative; MDEA negative; MDMA (Ecstasy) Urine, Confirm negative; Marijuana Quant, GCMS Urine 832 ng/mL (<5); Methamphetamine, Ur Confirm NEGATIVE ng/mL (<250)
[2019-12-08] MEDS: AMPHETAMINE ASP/SULF/DEXTRAMPH ER 20 MG CAP PO SCH (10:23)
--- NOTE | 2019-12-08 12:36 | Discharge Summary ---
Date of Service December 08, 2019 History of Present Illness Patient presented to the ER 12/04/2019 with alcohol intoxication and suicidality. He was brought in by police on a 302 warrant stating: "On 12/04/2019 at approximately 2300 hours I responded to an address in [facility]. At the address I made contact with Artemio Sotelo. Deepak was visibly under the influence of alcohol and stated that he was thinking of hurting himself. Deepak also stated he had a plan to hurt himself but didn't elaborate." Stated he had been drinking liquor daily, which worsens his mood, has shakes when he does not drink for a day, and BAL was 238. Reported he had been noncompliant with therapy and had not gone to appointments in months, and was not honest with his providers about how he was feeling. He endorsed worsening mood in the context of multiple stressors. He was allowed to sleep overnight in the ER, following morning was assessed and agreed to inpatient treatment. He was continued on his home medications, bupropion XL, clonidine, venlafaxine XR, and Adderall ER. On my assessment, he states mood has been suboptimal "for a long time," and he has not been about this with anyone. He states he drinks most nights, which causes him to be "quick to anger," and denied of presentation he "went off, was yelling something, and my sister called the police." He cannot recall what angered him, but admits to making suicidal statements to slit his throat, and frequent suicidal thoughts, feeling "I'm just not cut out for living." These are exacerbated by problems at work, feeling that his bosses use him as a scapegoat and blame him for things that are not his fault. He endorses chronic anxiety, feeling that he needs constant reassurance from others that they care about him, and worries that people will leave him. He denies panic attacks and social anxiety, but reports impaired sleep, and often drinks alcohol to help with anxiety and sleep. He describes his mood as "all right during the day, I go through the motions, but mood is not terrible." Energy and motivation are decreased, and notes he no longer works out (wrestled in high school, last 3 years ago). He denies anhedonia, is able to enjoy riding motorcycles and spending time with his friends. He states sleep has been poor "as long as I can remember," and that he has been drinking most days since he was 20 or 21 years old, typically a 12 pack of beer or a fifth of liquor. His drinking has caused problems with his friends, ended relationships, and he has been arrested for DUI. He rarely goes a day without drinking, "only if I have to." No history of manic or psychotic symptoms. Stressors include increased social isolation, lack of access to normal activities due to the pandemic, and more downtime at home. He reports good compliance with medications, and thinks that his current regimen is helpful, but that he needs to stop drinking. He only briefly attended treatment in the past ([facility]), but this was compulsory when he received his DUI, and he was not engaged/motivated. Physical Exam Psychiatric Orientation: alert and oriented x 3 Apperance: appropriately dressed and appropriately groomed Eye Contact: good eye contact Motor Behavior: steady gait and station Speech: normal rate/rhythm/volume of speech Affect: euthymic affect Mood: no depressed mood and no anxious mood Thought Process: goal directed thought process, linear/logical thought process and clear/coherent thought process Thought Content: reality based without delusions; no hopelessness and no worthlessness Suicidal Thoughts: denies suicidal thoughts Homicidal Thoughts: denies homicidal thoughts Hallucinations: no auditory hallucinations and no visual hallucinations Cognition: recent memory grossly intact, attention grossly intact and language grossly intact Estimated Intelligence: consistent with education level Insight: good insight Judgement: good judgement Vital Signs (Past 24 Hours) Last Vital Signs Temp 36.4 C L 12/08/19 09:52 Pulse 62 12/08/19 09:52 Resp 18 12/08/19 09:52 BP 119/83 12/08/19 09:52 Pulse Ox 99 12/08/19 09:52 Principal Diagnosis Major depressive disorder, recurrent Alcohol abuse ADHD Psychiatric Data 24-year-old male with a history of depression, anxiety, and ADHD was admitted voluntarily for inpatient psychiatric treatment on December 05, 2019. He presented to the ED with suicidality in the context of alcohol intoxication and was broug ht in by police on December 04, 2019. Reportedly he has been using alcohol about 12 pack or 1/5 of liquor daily for the past couple of years, which has not been revealed to his outpatient psychiatrist or therapist. His BAL was 238 at the ER. At time of admission, the patient reported suicidal thoughts and inability to contract for safety outside of the hospital. He was willing to work on sobriety and patient's home medications, including bupropion XL 150 mg, clonidine 0.2 mg, Adderall XR 50 mg, and venlafaxine 225 mg, were continued during the hospitalization. Over the course of the admission, he participated in group and recreational programming. He had a good family meeting with his parents and felt better after opening up about his alcohol abuse and his recent worsening mood. Patient reported eventual resolution of suicidal ideation and was willing to participate in outpatient D&A counseling through [facility], and to continue to follow-up with Dr. Dinh for medication management and [facility] Philippe for individual therapy. At time of requested discharge, he is able to contract for safety outside the hospital setting and is future oriented during conversation. Patient completed a safety plan prior to discharge. Based on review of patient's case and their current presentation, risk of harm to self or others is no longer perceived to be acute. Management of symptoms on an outpatient basis seems the most appropriate and least restrictive setting. Pt seems appropriate for discharge with recommendation for consistent follow-up with outpatient Dr. Dinh and [facility]. Pt verbalized understanding of discharge plan reviewed and is agreeable with plan to be discharged home today. Day of Discharge Assessment Patient's case was reviewed and discussed with nursing and social work program coordinator. Staff reports that he participated in the groups and activities yesterday and he rated his mood as 7/10 and "optimistic "in the community meeting last night. However he felt slightly overwhelmed by the idea of sobriety after being discharged but overall felt pretty confident utilizing his safety plan. Patient was seen today to assess readiness for discharge. Patient states that he feels significantly better today comparing to his low mood on the first day when he was admitted, stating he achieved a lot of things during this hospitalization. Also reports that he discussed his underlying issues and treatment plan with his family during a family meeting yesterday and felt much better afterwards. His safety plan was reviewed with the patient briefly today and he verbalized his triggers, warning signs, coping strategies, and people who can reach out if he has a problem. He confirms that knives or medications are securely stored/removed at home and denies any safety concerns at home. He also verbalized he will follow-up with [facility] for outpatient D&A counseling and quit smoking after discharge. Patient reports feeling comfortable with returning to his outpatient supports and he feels the goals of inpatient treatment have been met. Discharge plan was reviewed and patient verbalized understanding. ROS: Constitutional: denied cardiovascular: denied Respiratory: denied GI: denied Neurologic: denied Psychiatric: denies symptoms other than stated above Remainder of 10 body systems also reviewed and denied other than noted above. 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 Risk Factors Assessment Presenting risk factors reviewed on discharge. Precipitating stressors mitigat ed by: admission for inpatient psychiatric observation and treatment, appropriate adjustments to medications to target symptoms, attendance of therapeutic treatment groups, development of healthy and effective coping strategies, involvement of outpatient supports, completion of a safety plan, confirmation of extra medications being secured, confirmation of guns and weapons being secured, discussion regarding substance abuse and effects on mental health diagnoses, treatment of medical conditions and education on diagnoses. Pt has demonstrated improvement in condition with regard to depression and alcohol abuse. At this time, patient is requesting discharge and is no longer considered to be at acute risk of harm to himself or others. Pt will be discharged with recommendation for ongoing outpatient psychiatric treatment. 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 Relationships: Yes Supportive Family: Yes Tobacco Cessation at Discharge Tobacco Cessation Medication Prescribed at Discharge: Offered & Prescribed Practical counseling provided including: recognizing danger situations, developing coping skills and providing basic information about quitting Tobacco Cessation Outpatient Followup: Outpatient referral made to (contacting the quitline with staff prior to discharge) Total Time Total Time Spent: Greater Than 30 Minutes Total Time Includes: Examination of the patient, Discharge Planning, Medication Reconciliation, Communication with other providers and As well as Discharge Data Lab Results 12/04/19 12/04/19 12/04/19 23:51 23:51 23:51 WBC 7.33 RBC 5.23 Hgb 15.6 Hct 44.3 MCV 84.7 MCH 29.8 MCHC 35.2 RDW Std Deviation 41.2 RDW Coeff of Elvia 13.3 Plt Count 319 MPV 9.5 Immature Gran % (Auto) 0.3 Neut % (Auto) 59.6 Lymph % (Auto) 32.1 Cambria % (Auto) 7.1 Eos % (Auto) 0.5 Baso % (Auto) 0.4 Immature Gran # (Auto) 0.02 Neut # (Auto) 4.37 Lymph # (Auto) 2.35 Cambria # (Auto) 0.52 Eos # (Auto) 0.04 Baso # (Auto) 0.03 Sodium 143 Potassium 3.5 Chloride 109 H Carbon Dioxide 23 Anion Gap 11.0 BUN 9 Creatinine 0.97 Est Cr Clr Drug Dosing Not Reportable Est GFR ( Amer) 127.9 Est GFR (Non-Af Amer) 110.4 BUN/Creatinine Ratio 9.4 L Glucose 102 H Calcium 8.6 Total Bilirubin 0.2 AST 22 ALT 29 Alkaline Phosphatase 85 Total Protein 7.5 Albumin 4.1 Globulin 3.4 Albumin/Globulin Ratio 1.2 TSH 1.980 Urine Color Urine Appearance Urine pH Ur Specific Millis Urine Protein Urine Glucose (UA) Urine Ketones Urine Blood Urine Nitrite Urine Bilirubin Urine Urobilinogen Ur Leukocyte Esterase Urine WBC (Auto) Urine RBC (Auto) U Hyaline Cast (Auto) U Epithel Cells (Auto) Urine Bacteria (Auto) Salicylates < 1.7 L Urine Opiates Screen Ur Methadone, Qual Acetaminophen < 2 L Urine Barbiturates Ur Phencyclidine (PCP) U Amphetamines Confirm U Amphetamin/Meth Scrn U Methamphetamin Confrm Urine MDEA MDMA (Ecstasy) Screen MDMA Urine MDMA U Benzodiazepines Scrn Ur Cocaine Metabolite U Marijuana (THC) Screen U Marijuana THC Carboxy Drug Screen Comment Ethyl Alcohol mg/dL 12/04/19 12/05/19 12/05/19 23:51 00:50 00:50 WBC RBC Hgb Hct MCV MCH MCHC RDW Std Deviation RDW Coeff of Elvia Plt Count MPV Immature Gran % (Auto) Neut % (Auto) Lymph % (Auto) Cambria % (Auto) Eos % (Auto) Baso % (Auto) Immature Gran # (Auto) Neut # (Auto) Lymph # (Auto) Cambria # (Auto) Eos # (Auto) Baso # (Auto) Sodium Potassium Chloride Carbon Dioxide Anion Gap BUN Creatinine Est Cr Clr Drug Dosing Est GFR ( Amer) Est GFR (Non-Af Amer) BUN/Creatinine Ratio Glucose Calcium Total Bilirubin AST ALT Alkaline Phosphatase Total Protein Albumin Globulin Albumin/Globulin Ratio TSH Urine Color Yellow Urine Appearance Clear Urine pH 5.0 Ur Specific Millis 1.020 Urine Protein 1+ H Urine Glucose (UA) Negative Urine Ketones Trace H Urine Blood Negative Urine Nitrite Negative Urine Bilirubin Negative Urine Urobilinogen Negative Ur Leukocyte Esterase Negative Urine WBC (Auto) 1-5 Urine RBC (Auto) 0-4 U Hyaline Cast (Auto) 1-5 U Epithel Cells (Auto) 5-10 H Urine Bacteria (Auto) Negative Salicylates Urine Opiates Screen Neg Ur Methadone, Qual Neg Acetaminophen Urine Barbiturates Neg Ur Phencyclidine (PCP) Neg U Amphetamines Confirm U Amphetamin/Meth Scrn Pos H U Methamphetamin Confrm Urine MDEA MDMA (Ecstasy) Screen Pos H MDMA Urine MDMA U Benzodiazepines Scrn Neg Ur Cocaine Metabolite Neg U Marijuana (THC) Screen Pos H U Marijuana THC Carboxy Drug Screen Comment Ethyl Alcohol mg/dL 238.2 H 12/05/19 00:50 WBC RBC Hgb Hct MCV MCH MCHC RDW Std Deviation RDW Coeff of Elvia Plt Count MPV Immature Gran % (Auto) Neut % (Auto) Lymph % (Auto) Cambria % (Auto) Eos % (Auto) Baso % (Auto) Immature Gran # (Auto) Neut # (Auto) Lymph # (Auto) Cambria # (Auto) Eos # (Auto) Baso # (Auto) Sodium Potassium Chloride Carbon Dioxide Anion Gap BUN Creatinine Est Cr Clr Drug Dosing Est GFR ( Amer) Est GFR (Non-Af Amer) BUN/Creatinine Ratio Glucose Calcium Total Bilirubin AST ALT Alkaline Phosphatase Total Protein Albumin Globulin Albumin/Globulin Ratio TSH Urine Color Urine Appearance Urine pH Ur Specific Millis Urine Protein Urine Glucose (UA) Urine Ketones Urine Blood Urine Nitrite Urine Bilirubin Urine Urobilinogen Ur Leukocyte Esterase Urine WBC (Auto) Urine RBC (Auto) U Hyaline Cast (Auto) U Epithel Cells (Auto) Urine Bacteria (Auto) Salicylates Urine Opiates Screen Ur Methadone, Qual Acetaminophen Urine Barbiturates Ur Phencyclidine (PCP) U Amphetamines Confirm >09006 H U Amphetamin/Meth Scrn U Methamphetamin Confrm NEGATIVE Urine MDEA negative MDMA (Ecstasy) Screen MDMA negative Urine MDMA negative U Benzodiazepines Scrn Ur Cocaine Metabolite U Marijuana (THC) Screen U Marijuana THC Carboxy 832 H Drug Screen Comment SEE NOTE Ethyl Alcohol mg/dL Hospital Course (1) Depression with suicidal ideation: / -continue home medication regimen as he reports it is effective and identifies drinking as his primary concern. Mood worsens noticeably after drinking, and discussed the effects of alcohol on mood. He also indicates poor adherence with therapy, and that he is often not forthcoming in treatment. Discussed importance of learning how to identify and verbalize his emotions, and he is willing to work on this. -Family meeting with parents, to focus on safety concerns. Ensure no access to guns, and discussed ways to support sobriety, such as removing alcohol from the home. -Coordinate care with outpatient psychiatrist and therapist at some point. -Continue voluntary hospitalization, encourage group attendance and participation, work on healthy coping skills and discharge safety plan. 12/06 - Continue home medication regimen - Family meeting with parents this morning, patient reported feeling pleased with his ability to open up about his struggles anxiety and alcohol abuse - Continue voluntary hospitalization until appropriate aftercare referrals can be placed - will continue with [facility] for medication management and individual therapy, also willing for [facility] for D&A counseling (2) Alcohol abuse: 12/05 -history of withdrawal with shakes when he tries to stop drinking. Started on AWSS protocol on admission. Recovery protocol. -Recommend substance abuse treatment, explore during family meeting. -brief intervention was offered and accepted. Intervention was greater than 5 min in length. Brief interventions include: 1. Assess Readiness to Quit, 2. Advise: Help Patient to Reduce or Abstain from Alcohol, 3. Agree: Set Specific, Feasible Goals, 4. Assist: Anticipate barriers, Problem-Solving Solutions. Social work to 5. Arrange: Referrals to appropriate treatment. Summary of intervention: The patient is in contemplation stage with regards to transtheoretical model of change. The patient is advised to decrease alcohol consumption due to depressant effects and risk of interactions with prescription medications. The patient agreed to consider treatment, and will be provided with recovery materials to continue to education self on how to cope with their condition without drinking. 6/ - Pt participated in family meeting with parents today - patient's increasing alcohol use was discussed - Pt reporting desire for D&A counseling and was agreeable with referral to [facility] - Pt verbalizes willingness to continue individual therapy and psychiatric medication management (3) ADHD: Continue home dose of Adderall XR. Mental Health & Subst Abuse Tx Psychiatrist Name of Psychiatrist: Memorandom - Dr. Dinh Psychiatrist's Date of Appointment with Psychiatrist: 12/15/19 Time of Appointment with Psychiatrist: 8:40 a.m. Psychiatric Appointment Comment: Telehealth via Zoom through the [employer] Portal (call if need assistance) Psychiatrist Release of Information: Obtained, Reviewed and Signed Therapist Name of Therapist: [facility]andom Bárbara Philippe Therapist's Date of Therapist Appointment: 12/12/19 Time of Therapist Appointment: 1:00 p.m. Therapy Appointment Comment: Telehealth via Zoom through the [employer] Portal (call if need assistance) Therapist Release of Information: Obtained, Reviewed and Signed Office Nurse Name of Office Nurse: None Post Discharge Appointments Primary Care Physician Name Of Family Doctor: . Home Health Services Home Health Services:: None Smoking Cessation Counseling Tobacco Cessation Medication Prescribed at Discharge: Offered & Prescribed Tobacco Cessation Counseling: Given and Staff Asst Call Quit Line Name of Smoking Cessation Counselor: Pt. currently calling with staff Smoking Cessation Appointment Comment: pt. currently making the call; appt. TBA Other #1: Name of Aftercare Appointment: [facility] Phone Number of Aftercare Appointment: [phone] Date of Aftercare Appointment: 12/09/19 Time of Aftercare Appointment: 10:00 a.m. Aftercare Appointment Comment: Telehealth Release of Information Aftercare Appointment: Obtained, Reviewed and Signed Contact Information Discharge Discharge Address: [facility] [address] Discharge Plan Discharge Items Patient Disposition: Home - Self-Care Reason For Visit: SI, DEPRESSION Discharge Diagnosis: Major depressive disorder alcohol abuse ADHD Activity: Per Instructions section Non-emergency contact: Primary Care Provider, Psychiatrist and Therapist Call non-emergency contact if: you have any medication questions and your symptoms worsen Follow-up/Referrals: PCP,NO [Primary Care Provider] - Diet: Regular Addtl Attending Provider Instructions: SPECIAL CARE INSTRUCTIONS: 1. Follow through with your scheduled aftercare appointments. If unable to keep an appointment, please call to reschedule. 2. Take your medication only as prescribed. Medication should not be changed or stopped without the approval of your doctor. In the event of worsening symptoms or concerns about side effects, contact your doctor immediately. 3. Utilize new healthy coping skills, anger management skills, and stress management skills learned during your hospitalization. Journal feelings and process them with a support person. Identify stressors or situations that may result in relapse, deterioration or inappropriate behaviors and develop a plan to deal with those issues. 4. If your coping skills are ineffective and you are in crisis, contact your outpatient providers for direction. If unable to reach your providers, please call the CAN HELP LINE AT or go to the closest Emergency Room. 5. Avoid alcohol and un-prescribed drugs. 6. You have been provided with the Mental Health Advance Directives Pamphlet for your review. AFTERCARE APPOINTMENTS: * Please call your insurance company prior to your scheduled appointment to confirm your aftercare providers are covered. Take your insurance information to your appointments. WHO TO CALL AND WHEN: Medical Emergencies: For questions or emergencies related to your hospital stay, please contact the Inpatient Behavioral Health Unit at [phone]. A hogshead hooper is on-call 26/01 for the Behavioral Health Unit for emergencies At any time you feel your situation is an emergency, you may also call 911 mediately. Your discharge Instructions noted above were prepared by provider MARTIN Guo, and supervised by Dr. Gonzalez. Pending Studies at Discharge: No Stand-Alone Forms: My [facility], Smoking Cessation, Suicide Prevention Resources Medications and DC Order Prescriptions: New nicotine [Nicoderm CQ] 21 mg/24 hr Patch 24 Hour 21 mg transdermal QAM Qty: 0 RF: 0 Continued venlafaxine 75 mg capsule,extended release 24hr 75 mg PO QAM RF: 0 clonidine HCl 0.2 mg tablet 0.2 mg PO HS RF: 0 dextroamphetamine-amphetamine 20 mg capsule,extended release 24hr 50 mg PO QAM RF: 0 bupropion HCl 150 mg tablet extended release 24 hr 150 mg PO QAM RF: 0 venlafaxine 150 mg Capsule,Extended Release 24hr 150 mg PO QAM RF: 0 Discharge Orders: Discharge Order (Routine); Ordered 12/08/19 Ordered By: Nasra Vazquez Admission Data Admit Date/Time: 12/05/19 13:00 Attending Provider: Skye Gonzalez Admit Provider: Skye Gonzalez Primary Care Provider: PCP,NO Other Interventions: PSY Interdisciplinary Discharge Planning Last Done: 12/08/19 09:03 DC Date/Time DO NOT enter until pt leaves facility: 12/08/19 10:45 Coding Level of Care Code 98284 D/C day mgmt > 30 min Diagnoses Depression with suicidal ideation F32.9; R45.851 Alcohol abuse F10.10 ADHD F90.9
== END 2019-12-08 10:45 | disposition home or self-care (01) | DRG 885 ==
LOC: ED 23:23 → 3S 12-05 13:00